=== PATIENT | male | born 1995 | race African-American/Black ===

== ENCOUNTER 2016-07-08 11:29 | Emergency (ER) | payer OTHER ==
[~2016-07-08] VITALS: Ht 190.5 cm; Wt 86.2 kg
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
[2016-07-08 12:55] VITALS: BP 134/87
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
== END 2016-07-08 12:56 | disposition home or self-care (01) ==
LOC: ER 11:29
DX: S16.1XXA Strain of muscle, fascia and tendon at neck level, initial encounter (principal); S33.5XXA Sprain of ligaments of lumbar spine, initial encounter; S80.02XA Contusion of left knee, initial encounter; I10 Essential (primary) hypertension; Z88.8 Allergy status to other drugs, medicaments and biological substances; Z91.048 Other nonmedicinal substance allergy status; V89.2XXA Person injured in unspecified motor-vehicle accident, traffic, initial encounter; Y93.89 Activity, other specified; Y99.8 Other external cause status; Y92.89 Other specified places as the place of occurrence of the external cause
CPT/HCPCS: 72040; 73562; 99284

== ENCOUNTER 2016-08-06 10:34 | Emergency (ER) | payer SELFPAY ==
--- NOTE | 2016-08-06 11:17 | ED.ADGEN ---
Past History Past Medical History: Other Past Surgical History: No Surgical History Alcohol Use: None Drug Use: None Adult General Chief Complaint Chief Complaint nausea, vomiting, diarrhea HPI HPI Patient is a 21 year old male who presents with nausea, vomiting and diarrhea. He reports several days of symptoms, not taking symptomatically relief at home. 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 Patient recently moved here from [facility], has primary care physician Dr. Altman, has not established care with a sales producer in our area. Denies known fevers. Has been taking Lasix, recently prescribed 2 weeks worth, reports concentrated urine Review of Systems Review of Systems Constitutional: Denies chills [] Eyes: Denies change in visual acuity, redness, or eye pain [] HENT: Reports nasal congestion Respiratory: Denies cough or shortness of breath [] Cardiovascular: Denies chest pain GI: Per history of present illness : Denies dysuria Musculoskeletal: Denies back pain or joint pain [] Integument: Denies rash or skin lesions [] Neurologic: Denies headache, focal weakness or sensory changes [] Current Medications Current Medications Current Medications Medications (Trade) Dose Ordered Sig/Salud Start Time Stop Time Status Last Admin Dose Admin Furosemide 20 mg 20 mg 1X ONCE 08/06/16 13:00 08/06/16 13:01 DC 08/06/16 12:51 20 MG Ondansetron HCl (Zofran) 4 mg 1X ONCE 08/06/16 11:40 08/06/16 11:41 DC 08/06/16 11:27 4 MG Sodium Chloride (Iv Sodium Chloride 0.9% 1,000ml) 1,000 ml @ 1,000 mls/hr 1X ONCE 08/06/16 11:30 08/06/16 11:30 DC Sodium Chloride (Iv Sodium Chloride 0.9% 500ml) 500 ml @ 0 mls/hr 1X ONCE 08/06/16 13:00 08/06/16 13:01 DC 08/06/16 12:50 500 MLS/HR Allergies Allergies Allergies Coded Allergies Type Severity Reaction Last Updated Verified lisinopril Allergy Unknown 07/08/16 Yes pollen extracts Allergy Unknown 07/08/16 Yes Physical Exam Physical Exam Constitutional: Well developed, well nourished, ill appearing HENT: Normocephalic, atraumatic, bilateral external ears normal, oropharynx dry , no oral exudates, nose normal. [] Eyes: PERRLA, EOMI, conjunctiva normal, no discharge. [] Neck: Normal range of motion, no tenderness, supple, no stridor. [] Cardiovascular:Heart rate bradycardic with regular rhythm, no murmur [] Lungs & Thorax: Bilateral breath sounds clear to auscultation, no wheeze Abdomen: Bowel sounds normal, soft, no focal tenderness, no masses, no pulsatile masses. [] Skin: Warm, dry, no erythema, no rash. [] Back: No tenderness, no CVA tenderness. [] Extremities: No tenderness, no cyanosis, no clubbing, ROM intact, face bilateral lower extremity edema Neurologic: Alert and oriented X 3, normal motor function, normal sensory function, no focal deficits noted. [] Psychologic: Flat Affect [] Current Patient Data Vital Signs Vital Signs Date Time Temp Pulse Resp B/P Pulse Ox O2 Delivery O2 Flow Rate FiO2 08/06/16 10:45 97.5 61 16 99 Room Air Lab Results Laboratory Tests Test 08/06/16 11:05 08/06/16 11:14 08/06/16 13:15 White Blood Count 14.4x10^3/uL (4.0-11.0) H Red Blood Count 6.55x10^6/uL (4.30-5.70) H Hemoglobin 18.8g/dL (13.0-17.5) H Hematocrit 55.3% (39.0-53.0) H Mean Corpuscular Volume 84fL (79-100) Mean Corpuscular Hemoglobin 29pg (25-35) Mean Corpuscular Hemoglobin Concent 34g/dL (31-37) Red Cell Distribution Width 14.1% (11.5-14.5) Platelet Count 383x10^3/uL (140-400) Neutrophils (%) (Auto) 62% (31-73) Lymphocytes (%) (Auto) 25% (24-48) Monocytes (%) (Auto) 9% (0-9) Eosinophils (%) (Auto) 3% (0-3) Basophils (%) (Auto) 1% (0-3) Neutrophils # (Auto) 8.9x10^3uL (1.8-7.7) H Lymphocytes # (Auto) 3.6x10^3/uL (1.0-4.8) Monocytes # (Auto) 1.3x10^3/uL (0.0-1.1) H Eosinophils # (Auto) 0.5x10^3/uL (0.0-0.7) Basophils # (Auto) 0.1x10^3/uL (0.0-0.2) Segmented Neutrophils % 56% (35-66) Band Neutrophils % 0% (0-9) Lymphocytes % 30% (24-48) Monocytes % 11% (0-10) H Eosinophils % 3% (0-5) Basophils % 0% (0-3) Toxic Vacuolation Present Platelet Estimate Adequate (ADEQUATE) Platelet Clumps, EDTA Present POC Hemoglobin 19.4gm/dL POC Hematocrit 57% POC Sodium 132mmol/L (135-145) L POC Potassium 4.6mmol/L (3.5-5.0) POC Chloride 100mmol/L (98-110) POC Total CO2 30mmol/L (23-32) Anion Gap 8mmol/L (6-14) POC Blood Urea Nitrogen 41mg/dL (8-26) H POC Creatinine 1.2mg/dL (0.5-1.4) Glucose Level 101mg/dL (60-99) H POC Ionized Calcium (David) 1.01mmol/L (1.13-1.32) L Urine Collection Type Unknown Urine Color Yellow Urine Clarity Hazy Urine pH 5.5 Urine Specific [place] 1.020 Urine Protein >100 mg/dl (NEG-TRACE) Urine Glucose (UA) Negmg/dL (NEG) Urine Ketones (Stick) Negmg/dL (NEG) Urine Blood Mod (NEG) Urine Nitrite Neg (NEG) Urine Bilirubin Neg (NEG) Urine Urobilinogen Dipstick 0.2mg/dL (0.2 mg/dL) Urine Leukocyte Esterase Neg (NEG) Urine RBC Rare/HPF (0-2) Urine WBC 1-4/HPF (0-4) Urine Squamous Epithelial Cells None/LPF Urine Amorphous Sediment Present/HPF Urine Bacteria 0/HPF (0-FEW) Urine Hyaline Casts Mod/HPF Urine Granular Casts Many/HPF EKG EKG [] Radiology/Procedures Radiology/Procedures [] Course & Med Decision Making Course & Med Decision Making Pertinent Labs and Imaging studies reviewed. (See chart for details) Patient given 500 mL normal saline bolus, IV Zofran. Labs and urinalysis ordered. No significant abnormalities for this pt on labs/urinalysis. Pt received 20mg IV lasix and additional 500ml NS bolus. No active vomiting or diarrhea here in the ED. Pt appears much improved. Explained need to f/u with nephrology. List of local nephrologists given to pt. dc'd with rx for zofran. Final Impression Final Impression nausea and vomiting with diarrhea[] Problems: Dragon Disclaimer Dragon Disclaimer This electronic medical record was generated, in whole or in part, using a voice recognition dictation system. MINISTERIO RAM MD Aug 06, 2016 11:17
[2016-08-06 11:20] LABS: BASO # 0.1 x10^3/uL (0.0-0.2); BASO % 1 % (0-3); EOS # 0.5 x10^3/uL (0.0-0.7); EOS % 3 % (0-3); HEMATOCRIT 55.3 % (39.0-53.0); HEMOGLOBIN 18.8 g/dL (13.0-17.5); LYMPH # 3.6 x10^3/uL (1.0-4.8); LYMPH % 25 % (24-48); MEAN CORPUSCULAR HEMOGLOBIN 29 pg (25-35); MEAN CORPUSCULAR HGB CONC 34 g/dL (31-37); MEAN CORPUSCULAR VOLUME 84 fL (79-100); MONO # 1.3 x10^3/uL (0.0-1.1); MONO % 9 % (0-9); NEUT # 8.9 x10^3uL (1.8-7.7); NEUT % 62 % (31-73); PLATELET COUNT 383 x10^3/uL (140-400); RED BLOOD COUNT 6.55 x10^6/uL (4.30-5.70); RED CELL DISTRIBUTION WIDTH 14.1 % (11.5-14.5); WHITE BLOOD COUNT 14.4 x10^3/uL (4.0-11.0)
[2016-08-06] MEDS ORDERED: IV NORMAL SALINE 1,000ML 1,000 ML IV ONE (11:30)
[2016-08-06] MEDS ORDERED: ONDANSETRON PF 4 MG/2 ML VIAL. IV ONE (11:40)
[2016-08-06] MEDS ORDERED: IV NORMAL SALINE 500ML 500 ML IV ONE ×2 (11:40→13:00)
[2016-08-06 12:15] LABS: HEMOGLOBIN ISTAT 19.4 gm/dL; POTASSIUM ISTAT 4.6 mmol/L (3.5-5.0)
[2016-08-06 12:17] LABS: % BANDS 0 % (0-9); % BASOS 0 % (0-3); % EOS 3 % (0-5); % LYMPHS 30 % (24-48); % MONOS 11 % (0-10); % SEGS 56 % (35-66); PLATELET CLUMP PRESENT; PLT ESTIMATE ADEQUATE (ADEQUATE); TOXIC VACUOLATION PRESENT
[2016-08-06] MEDS ORDERED: FUROSEMIDE 40 MG/4 ML VIAL IVP ONE (13:00)
[2016-08-06 13:15] VITALS: BP 122/58
[2016-08-06 13:35] LABS: BACTERIA,URINE 0 /HPF (0-FEW); BILIRUBIN,URINE NEG (NEG); CLARITY,URINE HAZY; COLOR,URINE YELLOW; GLUCOSE,URINE NEG (NEG); NITRITE,URINE NEG (NEG); RBC,URINE RARE /HPF (0-2); UROBILINOGEN,URINE 0.2 mg/dL (0.2 mg/dL)
[2016-08-06 13:36] LABS: AMORPHOUS SEDIMENT,UR PRESENT /HPF; GRANULAR CASTS,URINE MANY /HPF; HYALINE CASTS, URINE MOD /HPF
[2016-08-06] MEDS ORDERED: ONDA4TAB10 SL (13:50)
== END 2016-08-06 14:10 | disposition home or self-care (01) ==
LOC: ER 10:34
DX: R11.2 Nausea with vomiting, unspecified (principal); R19.7 Diarrhea, unspecified; R09.81 Nasal congestion
CPT/HCPCS: 36415; 80047; 81001; 85007; 85027; 96361; 96374; 96375; 99284; J1940; J2405; J7040

== ENCOUNTER 2018-03-16 09:43 | Inpatient (IN) | payer BC ==
[~2018-03-16] VITALS: Ht 188 cm; Wt 104.0 kg
[~2018-03-16 09:43] MED LIST: ONDA4TAB10 SL
[2018-03-16] MEDS ORDERED: ONDANSETRON PF 4 MG/2 ML VIAL. IV PRN (10:15)
[2018-03-16] MEDS ORDERED: IOHEXOL 300 MG/ML 75 ML VIAL. IV ONE (10:30)
[2018-03-16 10:43] LABS: BASO # 0.1 x10^3/uL (0.0-0.2); BASO % 1 % (0-3); EOS # 0.2 x10^3/uL (0.0-0.7); EOS % 2 % (0-3); HEMATOCRIT 50.9 % (39.0-53.0); HEMOGLOBIN 17.4 g/dL (13.0-17.5); LYMPH # 1.7 x10^3/uL (1.0-4.8); LYMPH % 16 % (24-48); MEAN CORPUSCULAR HEMOGLOBIN 28 pg (25-35); MEAN CORPUSCULAR HGB CONC 34 g/dL (31-37); MEAN CORPUSCULAR VOLUME 83 fL (79-100); MONO # 0.7 x10^3/uL (0.0-1.1); MONO % 6 % (0-9); NEUT # 8.2 x10^3uL (1.8-7.7); NEUT % 75 % (31-73); PLATELET COUNT 303 x10^3/uL (140-400); RED BLOOD COUNT 6.14 x10^6/uL (4.30-5.70); RED CELL DISTRIBUTION WIDTH 13.3 % (11.5-14.5); WHITE BLOOD COUNT 10.9 x10^3/uL (4.0-11.0)
[2018-03-16] MEDS: IV NORMAL SALINE 1,000ML 1,000 ML IV SCH ×2 (10:44→18:02)
[2018-03-16 11:41] VITALS: BP 156/62
[2018-03-16 12:27] LABS: ALBUMIN 1.2 g/dL (3.4-5.0); ALBUMIN/GLOBULIN RATIO 0.4 (1.0-1.7); CALCIUM 7.5 mg/dL (8.5-10.1); CREATININE 0.9 mg/dL (0.7-1.3); GFR 126.5; POTASSIUM 3.9 mmol/L (3.5-5.1); TOTAL BILIRUBIN 0.3 mg/dL (0.2-1.0); TOTAL PROTEIN 4.2 g/dL (6.4-8.2)
[2018-03-16 15:42] LABS: BILIRUBIN,URINE NEG (NEG); CLARITY,URINE CLOUDY; COLOR,URINE AMBER; GLUCOSE,URINE NEG (NEG); NITRITE,URINE NEG (NEG); UROBILINOGEN,URINE 0.2 mg/dL (0.2 mg/dL)
[2018-03-16 15:44] LABS: BACTERIA,URINE FEW /HPF (0-FEW); GRANULAR CASTS,URINE FEW /HPF; SQUAMOUS EPITHELIAL CELL,UR FEW /LPF
[2018-03-16 15:56] VITALS: BP 155/80
--- NOTE | 2018-03-16 16:11 | RAD ---
CT scan of the abdomen and pelvis with contrast 03/16/2018 CLINICAL HISTORY: Hematuria with lower abdominal pain and bloating. TECHNIQUE: After the intravenous administration 75 cc of Omnipaque 300, contiguous, 3 mm axial sections were obtained through the abdomen and pelvis. One or more of the following individualized dose reduction techniques were utilized for this study: 1. Automated exposure control. 2. Adjustment of the mA and/or kV according to patient size. 3. Use of iterative reconstruction technique. FINDINGS: Comparison is made to the patient's renal ultrasound dated 08/30/2016. The absence of oral contrast material limits the study for the detection of bowel pathology. Images through the lung bases demonstrate minimal dependent subsegmental atelectasis involving both lower lobes. The liver, spleen, pancreas, adrenal glands and kidneys are within normal limits. The abdominal aorta tapers normally. The gallbladder is contracted. No free fluid or free air is seen within the abdomen. There is no evidence of bowel obstruction. The appendix is well-visualized and is within normal limits. Patchy increased attenuation is seen within the mesenteric fat just to the left of midline within the mid abdomen. This is a nonspecific finding. This could reflect inflammation possibly related pancreatitis or a duodenitis. No abnormal fluid collection is seen. Images through pelvis demonstrate the urinary bladder distended with urine. A small amount of free fluid is seen within the pelvis. Very mild S-shaped curvature of the thoracolumbar spine is seen. IMPRESSION: Patchy increased attenuation is seen within the mesenteric fat just to the left of midline within the mid abdomen. This is nonspecific but could reflect inflammation possibly due to pancreatitis or a duodenitis as outlined above. Clinical correlation is recommended. A small amount of free fluid is seen within the pelvis. Electronically signed by: Johny Mock MD (03/16/2018 4:07 PM) [id number]
[2018-03-16 19:31] VITALS: BP 146/89
[2018-03-16 22:27] VITALS: BP 140/81
[2018-03-17] MEDS: IV NORMAL SALINE 1,000ML 1,000 ML IV SCH ×2 (02:31→10:15)
[2018-03-17 05:45] VITALS: BP 141/74
[2018-03-17] MEDS ORDERED: FUROSEMIDE 40 MG/4 ML VIAL IVP ONE (06:45)
[2018-03-17 08:37] LABS: BASO % 0 % (0-3); EOS # 0.4 x10^3/uL (0.0-0.7); EOS % 4 % (0-3); HEMATOCRIT 46.3 % (39.0-53.0); HEMOGLOBIN 15.7 g/dL (13.0-17.5); LYMPH # 3.2 x10^3/uL (1.0-4.8); LYMPH % 30 % (24-48); MEAN CORPUSCULAR HEMOGLOBIN 28 pg (25-35); MEAN CORPUSCULAR HGB CONC 34 g/dL (31-37); MEAN CORPUSCULAR VOLUME 83 fL (79-100); MONO # 0.9 x10^3/uL (0.0-1.1); MONO % 8 % (0-9); NEUT # 6.1 x10^3uL (1.8-7.7); NEUT % 58 % (31-73); PLATELET COUNT 311 x10^3/uL (140-400); RED CELL DISTRIBUTION WIDTH 13.9 % (11.5-14.5); WHITE BLOOD COUNT 10.6 x10^3/uL (4.0-11.0)
[2018-03-17 08:43] LABS: CALCIUM 7.3 mg/dL (8.5-10.1); CREATININE 1.2 mg/dL (0.7-1.3); GFR 90.8; POTASSIUM 3.9 mmol/L (3.5-5.1)
[2018-03-17] MEDS ORDERED: PANTOPRAZOLE 40 MG TABLET. PO SCH (10:00)
[2018-03-17 10:20] VITALS: BP 169/101
[2018-03-17] MEDS ORDERED: ONDANSETRON ODT 4 MG TAB.RAPDIS PO PRN (10:30)
--- NOTE | 2018-03-25 19:58 | DS ---
DATE OF DISCHARGE: 03/17/2018 HOSPITAL COURSE: This is a pleasant 22-year-old gentleman, who has a history of nephrotic syndrome, apparently had not been seeing a senior cyber intelligence analyst for some time and the patient came in with severe abdominal pain. His CT scan showed some abnormality in the epigastric area, possibly consistent with gastritis or duodenitis, but the patient was unable to get any relief. The CT scan demonstrated continuation of possible pancreatitis or duodenitis on a CT scan, although his amylase and lipase were basically normal. His albumin was extremely low at 1.2. His urine of course showed greater than 100 mg/dL of protein and did have red blood cells and white blood cells in his urine as well. Urine culture showed no growth. In any case, because of his nephrotic syndrome and continued abdominal pain, the patient was transferred to [facility] where a senior cyber intelligence analyst was available to handle this situation with more expertise that was available at this institution. This was discussed with him and his family and they agreed. He was discharged home and family were going to transport him via the vehicle to the [facility]. IMPRESSION: Nephrotic syndrome, abdominal pain, duodenitis, hematuria. He is asymptomatic. SUSHIL SHAIKH MD DR: PARAMJIT/alejandro JOB#: [id number] / [id number]
== END 2018-03-17 10:44 | disposition short-term general hospital (02) | DRG 698 ==
LOC: ICU 09:50
PROVIDERS: ADMIT Family Medicine; ATTEND Family Medicine
DX: N04.9 Nephrotic syndrome with unspecified morphologic changes (principal); K85.90 Acute pancreatitis without necrosis or infection, unspecified; R11.11 Vomiting without nausea; K29.80 Duodenitis without bleeding; R10.33 Periumbilical pain; R31.29 Other microscopic hematuria; M54.5 Low back pain; Z88.8 Allergy status to other drugs, medicaments and biological substances; Z79.899 Other long term (current) drug therapy; R31.9 Hematuria, unspecified
CPT/HCPCS: 36415; 74177; 80048; 80053; 81001; 82150; 83605; 83690; 85025; 87086; 87641; J0696; J1940; Q9967; J7030

== ENCOUNTER → 2018-10-21 | Outpatient (CLI) | payer BC ==
--- NOTE | 2018-10-21 09:08 | RAD ---
PQRS Compliance Statement: One or more of the following individualized dose reduction techniques were utilized for this examination: 1. Automated exposure control 2. Adjustment of the mA and/or kV according to patient size 3. Use of iterative reconstruction technique CT abdomen/pelvis without contrast 10/21/2018 9:00 AM INDICATION: Nephrotic syndrome with minimal change disease COMPARISON: CT abdomen/pelvis March 16, 2018 TECHNIQUE: Multiple axial CT images of the abdomen and pelvis were obtained without intravenous contrast. Coronal and sagittal reformats are provided. FINDINGS: Trace left pleural effusion. Heart size is within normal limits. Evaluation of the solid abdominal viscera is limited by lack of intravenous contrast. No suspicious hepatic masses are identified. 10 mm hypodensity is identified in the inferior spleen (series 2, image 41), not definitively seen on prior examination from March 16, 2018. Adrenal glands and gallbladder are normal in appearance. Peripancreatic inflammatory changes are present suggestive of pancreatitis. Lack of intravenous contrast since evaluation for necrosis. Abdominal aorta is normal in course and caliber. Small volume peripancreatic free fluid is identified as well as free fluid within the dependent portion of the pelvis. Reactive inflammatory changes are identified involving the third portion of the duodenum. Stomach is normal in appearance. Small and large bowel are normal in caliber. There is no evidence for bowel obstruction. There are no pericolonic inflammatory changes. A normal, nondilated appendix is visualized without adjacent inflammatory changes. The kidneys are relatively symmetric in appearance. There is no suspicious renal mass within the limitations of a noncontrast examination. There is no hydronephrosis. There are no calculi within the kidneys, ureters or urinary bladder. Urinary bladder is within normal limits given degree of distention. Prostate and seminal vesicles are normal in appearance. No suspicious osseous abnormality is identified. IMPRESSION: Findings are most compatible with acute pancreatitis. Without intravenous contrast, is difficult to evaluate for interstitial edematous pancreatitis versus necrotic pancreatitis. Small volume free fluid is identified within the peripancreatic region and dependent portion of the pelvis. Trace left pleural effusion is identified. Electronically signed by: Ailin Faye MD (10/21/2018 9:05 AM) [id number]
--- NOTE | 2018-10-21 09:17 | RAD ---
Examination: RENAL BILAT RENAL DUPLEX CO History: Chronic kidney disease stage I, nephrotic syndrome hematuria. Comparison/Correlation: 10/21/2018 CT abdomen and pelvis with contrast Findings: Right kidney measures 12.2 cm x 6.3 cm x 5.7 cm. Left kidney measures 12.5 cm x 6.5 cm x 5.6. No hydronephrosis. Aortic flow velocity of 106 cm/s is noted. Renal veins bilaterally are patent on color Doppler imaging. Right renal arterial velocities are 128 cm/s proximally, 159 cm/s at the midportion, and 67 cm/s distally. Resistive indices range from 0.6-0.63. Flow velocity ratio of the right main renal artery to the aorta is 1.5. Left main renal arterial flow velocities are 95 cm/s proximally, 83 cm/s at the midportion, and 94 cm/s distally. Resistive indices of up to 0.68 are noted. Left renal artery to aorta velocity ratio is 0.9. Urinary bladder is mostly decompressed. Impression: Normal bilateral renal resistive indices. Normal flow velocity ratios. No hydronephrosis. The Electronically signed by: Nestor August MD (10/21/2018 9:14 AM) [facility]
== END | disposition home or self-care (01) ==
LOC: US 07:41
PROVIDERS: ATTEND Internal Medicine Nephrology
DX: N04.0 Nephrotic syndrome with minor glomerular abnormality (principal); N18.1 Chronic kidney disease, stage 1; R80.1 Persistent proteinuria, unspecified; R31.9 Hematuria, unspecified
CPT/HCPCS: 74176; 76770

== ENCOUNTER 2021-03-16 02:54 | Emergency (ER) | payer SELFPAY ==
[~2021-03-16] VITALS: Ht 190.5 cm; Wt 81.3 kg
[2021-03-16 03:22] VITALS: BP 142/90
--- NOTE | 2021-03-16 03:44 | PHYS DOC ---
Past History Past Medical History: Other Additional Past Medical Histor: NEPHROTIC SYNDROME Past Surgical History: No Surgical History Alcohol Use: None Drug Use: None General Adult EDM: Chief Complaint: ABDOMINAL PAIN HPI: HPI: 25-year-old male presents with edema, abdominal pain, lipids in his urine and stool. The patient has a history of nephrotic syndrome due to minimal-change disease. He has been off all medications for at least 2 years. He does follow with Dr. Arciniega at [facility]. The patient was told to come to the emergency room if his symptoms ever started again after he got off his medications. The symptoms started today so he came in. He is at his baseline weight of 178-179. Review of Systems: Review of Systems: Constitutional: Denies fever or chills Eyes: Denies change in visual acuity HENT: Denies nasal congestion or sore throat Respiratory: Denies cough or shortness of breath Cardiovascular: Denies chest pain or edema GI: No abdominal pain, lipids in stool : Lipids in urine Musculoskeletal: Denies back pain or joint pain Integument: Denies rash Neurologic: Denies headache, focal weakness or sensory changes Endocrine: Denies polyuria or polydipsia Lymphatic: Denies swollen glands Psychiatric: Denies depression or anxiety Allergies: Allergies: Allergies Coded Allergies Type Severity Reaction Last Updated Verified lisinopril Allergy Unknown 07/08/16 Yes pollen extracts Allergy Unknown 07/08/16 Yes Physical Exam: PE: Constitutional: Well developed, well nourished, no acute distress, non-toxic appearance. [] HENT: Normocephalic, atraumatic, bilateral external ears normal, oropharynx moist, no oral exudates, nose normal. [] Eyes: PERRLA, EOMI, conjunctiva normal, no discharge. [] Neck: Normal range of motion, no tenderness, supple, no stridor. [] Cardiovascular: Heart rate regular rhythm, no murmur [] Lungs & Thorax: Bilateral breath sounds clear to auscultation [] Abdomen: Bowel sounds normal, soft, no tenderness, no masses, no pulsatile masses. [] Skin: Warm, dry, no erythema, no rash. [] Back: No tenderness, no CVA tenderness. [] Extremities: No tenderness, no cyanosis, no clubbing, ROM intact, mild facial edema. [] Neurologic: Alert and oriented X 3, normal motor function, normal sensory function, no focal deficits noted. [] Psychologic: Affect normal, judgement normal, mood normal. [] Current Patient Data: Vital Signs: Vital Signs Date Time Temp Pulse Resp B/P (MAP) Pulse Ox O2 Delivery O2 Flow Rate FiO2 03/16/21 03:22 98.1 61 16 142/90 (107) 99 Room Air EKG: EKG: [] Radiology/Procedures: Radiology/Procedures: [] Heart Score: C/O Chest Pain: N/A Risk Factors: Risk Factors: DM, Current or recent (<one month) smoker, HTN, HLP, family history of CAD, obesity. Risk Scores: Score 0 - 3: 2.5% MACE over next 6 weeks - Discharge Home Score 4 - 6: 20.3% MACE over next 6 weeks - Admit for Clinical Observation Score 7 - 10: 72.7% MACE over next 6 weeks - Early Invasive Strategies Course & Med Decision Making: Course & Med Decision Making Pertinent Labs and Imaging studies reviewed. (See chart for details) The patient's urinalysis is showing greater than 100 of protein. Exact calculation from spot protein creatinine ratio was not available from our lab. Those results would not be back until much later today. Getting go and treat the patient with 80 mg of prednisone and have recommended that he follow-up with his specialist later this morning for further advice. I have given the patient 4 mg of Zofran IV and 2 mg of more. I will discharge him with a prescription for Zofran and [place] 5/325. He is stable for discharge at this time. [] Dragon Disclaimer: Dragjana Disclaimer: This electronic medical record was generated, in whole or in part, using a voice recognition dictation system. Departure Departure: Impression: Primary Impression: Nephrotic syndrome Disposition: HOME / SELF CARE / HOMELESS Condition: STABLE Referrals: ELDA ARCINIEGA MD (PCP) Patient Instructions: Nephrotic Syndrome Scripts Ondansetron (ONDANSETRON ODT) 4 Mg Tab.rapdis 1 TAB PO PRN Q6-8HRS PRN for VOMITING, #16 TAB Prov: CINDY VASQUEZ DO 03/16/21 Hydrocodone/Acetaminophen (Hydrocodone-Acetamin 5-325 mg) 1 Each Tablet 1 EACH PO Q4-6HRS PRN for PAIN, #10 TAB Prov: CINDY VASQUEZ DO 03/16/21 CINDY VASQUEZ DO Mar 16, 2021 03:44
[2021-03-16] MEDS ORDERED: ONDANSETRON PF 4 MG/2 ML VIAL. ONE (04:00)
[2021-03-16 04:07] LABS: BASO % 1 % (0-3); EOS % 1 % (0-3); HEMATOCRIT 52.4 % (39.0-53.0); HEMOGLOBIN 17.6 g/dL (13.0-17.5); LYMPH # 1.8 x10^3/uL (1.0-4.8); LYMPH % 28 % (24-48); MEAN CORPUSCULAR HEMOGLOBIN 29 pg (25-35); MEAN CORPUSCULAR HGB CONC 34 g/dL (31-37); MEAN CORPUSCULAR VOLUME 87 fL (79-100); MONO # 0.9 x10^3/uL (0.0-1.1); MONO % 14 % (0-9); NEUT # 3.7 x10^3uL (1.8-7.7); NEUT % 57 % (31-73); PLATELET COUNT 242 x10^3/uL (140-400); RED BLOOD COUNT 6.03 x10^6/uL (4.30-5.70); RED CELL DISTRIBUTION WIDTH 13.8 % (11.5-14.5); WHITE BLOOD COUNT 6.5 x10^3/uL (4.0-11.0)
[2021-03-16 04:11] LABS: CALCIUM 7.5 mg/dL (8.5-10.1); CREATININE 0.9 mg/dL (0.7-1.3); GFR 123.4
[2021-03-16 04:12] LABS: BILIRUBIN,URINE SMALL (NEG); CLARITY,URINE HAZY; COLOR,URINE YELLOW; GLUCOSE,URINE NEG (NEG); NITRITE,URINE NEG (NEG); POTASSIUM 3.9 mmol/L (3.5-5.1); UROBILINOGEN,URINE 0.2 mg/dL (0.2 mg/dL)
[2021-03-16 04:13] LABS: BACTERIA,URINE MANY /HPF (0-FEW); HYALINE CASTS, URINE MANY /HPF
[2021-03-16 04:18] LABS: ALBUMIN 0.9 g/dL (3.4-5.0); ALBUMIN/GLOBULIN RATIO 0.2 (1.0-1.7); TOTAL BILIRUBIN 0.2 mg/dL (0.2-1.0); TOTAL PROTEIN 4.8 g/dL (6.4-8.2)
[2021-03-16] MEDS ORDERED: ONDANSETRON PF 4 MG/2 ML VIAL. IVP ONE (04:30)
[2021-03-16] MEDS ORDERED: ONDA4TAB12 PO (04:40)
[2021-03-16] MEDS ORDERED: HYDR-2759 PO (04:40)
[2021-03-16] MEDS ORDERED: MORPHINE SULFATE 2 MG/ML DISP.SYRIN. IV ONE (05:00)
[2021-03-16] MEDS ORDERED: predniSONE 20 MG TABLET PO ONE (05:00)
[2021-03-16 19:43] LABS: CREATININE,RANDOM URINE 355.5 mg/dL (Not Establ.)
[2021-03-19 18:20] LABS: ALBUMIN RAND UR 74.7 % (.); ALPHA 1 RAND UR 6.7 % (.); BETA RAND UR 8.6 % (.); PROTEIN UR RAND 6111.5 mg/dL (Not Estab.)
== END 2021-03-16 05:01 | disposition home or self-care (01) ==
LOC: ER 02:54
DX: N04.9 Nephrotic syndrome with unspecified morphologic changes (principal); Z88.8 Allergy status to other drugs, medicaments and biological substances
CPT/HCPCS: 36415; 80053; 81001; 82570; 84156; 84166; 85025; 87086; 96374; 96375; 99284; J2270; J2405; J7512